=== PATIENT | male | born 1965 | race Caucasian/White ===

== ENCOUNTER 2017-06-03 01:54 | Inpatient (IN) | END 2017-06-12 20:30 | disposition home health service (06) | DRG 854 ==

== ENCOUNTER 2017-11-08 18:26 | Emergency (ER) | END 2017-11-09 05:07 | disposition home or self-care (01) ==

== ENCOUNTER 2018-04-17 00:46 | Inpatient (IN) | END 2018-04-23 18:50 | disposition home health service (06) | DRG 854 ==

== ENCOUNTER 2018-08-10 21:34 | Emergency (ER) | payer OTHER ==
[~2018-08-10] VITALS: Ht 177.8 cm; Wt 92.3 kg
[~2018-08-10 21:34] MED LIST: ASPI-817 PO; BENA5TAB33 PO; CHOL100062 PO; HYDR-3601 PO; LANT3I SC; METF500T PO; SIMV10TA PO
[2018-08-10 21:38] VITALS: Ht 177.8 cm; Wt 92.3 kg
[2018-08-11] MEDS ORDERED: LIDOCAINE 1% (MDV) 10 ML INJ INJ STA (01:00)
[2018-08-11] MEDS ORDERED: LIDOCAINE 1% (MDV) 20 ML INJ INJ SCH (01:11)
[2018-08-11] MEDS ORDERED: CLIN300C10 PO (01:57)
[2018-08-11] MEDS ORDERED: SULF1TAB31 PO (01:57)
[2018-08-11] MEDS ORDERED: IBUP-1542 PO (01:58)
[2018-08-11] MEDS ORDERED: TRIMETHOPRIM/SULFAMETHOX (DS) TAB PO ONE (02:00)
[2018-08-11] MEDS ORDERED: CLINDAMYCIN 300 MG CAP PO ONE (02:00)
[2018-08-11 02:31] VITALS: BP 142/83; PULSE 85; RESP 19
--- NOTE | 2018-08-11 03:59 | ERD ---
ER Documentation Chief Complaint Chief Complaint left 3rd finger pain/swelling/discharge x 2 days HPI Patient is a 53-year-old male with history of diabetes presents to the ED with complaints of a paronychia to his left middle finger. 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 He has been soaking his finger in warm water about 4 times a day for the past few days with mild improvement. He states he noticed pus collect around his nail bed earlier today and was able to squeeze out a significant amount of pus prior to arriving. He denies any associated fevers, chills, numbness, tingling or, focal weakness. He has full range of motion of his finger without significant pain. Patient reports history of multiple paronychias in the past secondary to "biting my nails a lot." His last paronychia was about 3 months ago and required surgical intervention. ROS All systems reviewed and are negative except as per history of present illness. Medications Home Meds Active Scripts Ibuprofen* (Ibuprofen*) 600 Mg Tablet, 600 MG PO Q6 for pain, #30 TAB Prov:EUGENEIGRNINGANPAULPYUR N PA-C 08/11/18 Clindamycin Hcl* (Clindamycin Hcl*) 300 Mg Capsule, 300 MG PO TID for 7 Days, #21 CAP Prov:EUGENEIGRIKIANZEPYUR N PA-C 08/11/18 Sulfamethoxazole/Trimethoprim* (Bactrim Ds* Tablet) 1 Each Tablet, 1 TAB PO TUTU Y, #7 TAB Prov:EUGENEIGRIKIMINOZEPYUR N PA-C 08/11/18 Hydrocodone Bit-Acetaminophen (Hydrocodone Bit-APAP) 5-325MG Tablet, 1 TAB PO Q6H PRN for PAIN for 10 Days, TAB Prov:NAHUM MAN 04/23/18 Reported Medications Metformin Hcl (Glucophage) 500 Mg Tablet, 1000 MG PO BID, #30 TAB 04/17/18 Cholecalciferol* (Vitamin D3*) 1,000 Unit Tablet, 3 UNIT PO DAILY, TAB 04/17/18 Insulin Glargine* (Lantus*) 100 Unit/Ml Soln, UNIT SC BID, #1 VIAL INJECT 20-25 UNITS 04/16/18 Aspirin* (Aspirin* EC) 81 Mg Tablet.dr, 81 MG PO DAILY, TAB 04/16/18 Benazepril Hcl* (Benazepril Hcl*) 5 Mg Tablet, 5 MG PO DAILY, #30 TAB 04/16/18 Simvastatin* (Zocor*) 10 Mg Tablet, 10 MG PO QHS, #30 TAB 04/16/18 Cholecalciferol* (Vitamin D3*) 1,000 Unit Tablet, 1000 UNIT PO DAILY, TAB 04/16/18 Allergies Allergies: Coded Allergies: Penicillins (Unverified Allergy, Unknown, unknown, 08/10/18) PMhx/Soc History of Surgery: Yes (bila foot debridemenet (); umbilican hernia repair (7 years ago)) Anesthesia Reaction: No Hx Neurological Disorder: Yes (neuropathy) Hx Respiratory Disorders: No Hx Cardiac Disorders: No Hx Psychiatric Problems: No Hx Miscellaneous Medical Probl: Yes (dm) Hx Alcohol Use: Yes (once a year) Hx Substance Use: Yes (marijuana, 1 joint 2days ago, 08/09/18) Hx Tobacco Use: No Smoking Status: Never smoker Physical Exam Vitals Vital Signs Date Temp Pulse Resp B/P (MAP) Pulse Ox O2 O2 Flow FiO2 Time Delivery Rate 08/11/18 97.8 85 19 142/83 98 Room Air 02:31 (102) 08/10/18 97.8 98 18 159/78 99 21:38 (105) Physical Exam Const: No acute distress Head: Atraumatic Skin: + Erythema and edema of proximal nail fold of the left middle finger w ith tenderness to palpation. No visible abscess. Ext: No cyanosis or edema. Full ROM of all extremities. Neur: Awake and alert Psych: Normal Mood and Affect Results 24 hrs Current Medications Medications Dose Sig/Cindi Start Time Status Last (Trade) Ordered Route PRN Stop Time Admin Dose Reason Admin Lidocaine 10 ml ONCE STAT 08/11/18 Cancel HCl INJ 01:00 (Lidocaine 08/11/18 01:01 1% (Mdv) 10 ml) Lidocaine 20 ml ONCE INJ 08/11/18 DC (Xylocaine 01:11 1% (Mdv) 20 08/11/18 02:00 ml) Clindamycin 300 mg ONCE ONCE 08/11/18 DC 08/11/18 HCl PO 02:00 02:18 (Cleocin) 08/11/18 02:01 1 tab ONCE ONCE 08/11/18 DC 08/11/18 Trimethoprim/ PO 02:00 02:18 08/11/18 02:01 Sulfamethoxaz ole (Bactrim (Ds)) Procedures/MDM PROCEDURES: Abscess Incision and Drainage with irrigation by me: Location: Left middle finger, proximal nail fold Anesthesia: Local 1% Lidocaine without epi via digital block Technique: Number 11 blade scalpel Packing: None Complications: Neurovascularly intact post procedure EMERGENCY DEPARTMENT COURSE / MEDICAL DECISION MAKING: This is a 53-year-old male with history of diabetes and multiple paronychias who presents to the ED with complaints of a new onset paronychia to his left middle finger. Patient consented to an incision and drainage procedure which was performed after appropriate sterilization and anesthesia as above. An #11 surgical blade was used to make a small incision to his cuticle margin with minimal pus discharge. Patient has a history of diabetes therefore he was given a prescription for both Bactrim and Clindamycin for empiric coverage. He was given his first dose of antibiotics here. At this time, patient is stable for outpatient follow up up and management. I recommended he continue with his warm water soaks 4 times a day, take ibuprofen for pain and follow-up with his regular doctor in 2 days. He was told to return to the ED for any new or worsening symptoms. I have low suspicion for sepsis, deep tissue infection, necrotizing fasciitis, tenosynovitis, or any other emergent process. Prior to discharge, patients vital signs have been reviewed SPECIALIST FOLLOW UP RECOMMENDED: None Patient has been advised to follow up with primary care in 1-2 days. Blood Pressure Assessment: Patient's blood pressure was elevated (>120/80) but appears stable without evidence of hypertension emergency or urgency. The patie nt was counseled about the risks of hypertension and urged to pursue outpatient monitoring and therapy within a week with their primary care physician. Departure Diagnosis: Primary Impression: Paronychia of finger of left hand Additional Impression: Diabetes mellitus Condition: Stable Patient Instructions: Paronychia Additional Instructions: Please see her regular doctor in 2 days. I have prescribed due to antibiotics to take for the next 7 days. Continue with warm water soaks for 10 minutes about 4 times a day. Return to the ED for any new or worsening symptoms. STEVE STERN PA-C Aug 11, 2018 03:21
== END 2018-08-11 02:33 | disposition home or self-care (01) ==
LOC: FTE 21:34
DX: L03.012 Cellulitis of left finger (principal); E11.9 Type 2 diabetes mellitus without complications; Z79.82 Long term (current) use of aspirin; Z79.4 Long term (current) use of insulin
CPT/HCPCS: 26010; Z7502; Z7610